=== PATIENT | male | born 1985 | race Caucasian/White ===

== ENCOUNTER 2021-12-26 19:58 | Emergency (ER) | payer SELFPAY ==
[~2021-12-26] VITALS: Ht 188 cm; Wt 104.8 kg
[2021-12-26 20:30] VITALS: BP_SYST 152
[2021-12-26] MEDS ORDERED: LORazepam 1 MG TABLET PO ONE (23:30)
[2021-12-27 00:06] LABS: EOSINOPHILS # (AUTO) 0.1 K/uL (0.0-0.4); RED BLOOD CELL COUNT(AUTO) 5.55 MIL/uL (4.2-6.2)
[2021-12-27 00:16] LABS: POTASSIUM 3.4 mmol/L (3.5-5.1)
[2021-12-27 00:17] LABS: CREATININE 0.96 mg/dL (0.55-1.30)
[2021-12-27 00:21] LABS: BASOPHILS % (AUTO) 0.2 % (0.0-2.0); EOSINOPHILS % (AUTO) 0.5 % (0.0-4.0); HEMATOCRIT 46.8 % (36-54); HEMOGLOBIN 15.5 g/dL (14.0-18.0); LYMPHOCYTES # (AUTO) 2.3 K/uL (1.0-5.5); LYMPHOCYTES % (AUTO) 16.2 % (20.5-51.5); MEAN CORPUSCULAR HEMOGLOBIN 28 pg (27-31); MEAN CORPUSCULAR HGB CONC 33 % (32-36); MEAN CORPUSCULAR VOLUME 84 fL (79.0-98.0); MONOCYTES # (AUTO) 0.7 K/uL (0.0-1.0); MONOCYTES % (AUTO) 5.2 % (1.7-9.3); NEUTROPHILS # (AUTO) 11.1 K/uL (1.8-7.7); NEUTROPHILS % (AUTO) 77.9 % (40.0-70.0); PLATELET COUNT (AUTO) 254 K/uL (130-430); RED CELL DISTRIBUTION WIDTH 15.1 % (9.0-15.0); WHITE BLOOD COUNT (AUTO) 14.2 K/uL (4.8-10.8)
[2021-12-27 00:22] LABS: ALBUMIN 3.5 g/dL (3.4-4.8); TOTAL BILIRUBIN 0.8 mg/dL (0.0-1.0)
[2021-12-27] MEDS ORDERED: methylPREDNISolone SOD SUCC/PF 62.5 MG/ML VIAL IM ONE (01:00)
[2021-12-27] MEDS ORDERED: FAMOTIDINE 20 MG TABLET PO ONE (01:00)
[2021-12-27] MEDS ORDERED: DIPHENHYDRAMINE INJ 50 MG/ML VIAL IM ONE (01:00)
[2021-12-27 02:48] VITALS: BP_SYST 145
== END 2021-12-27 01:40 | disposition home or self-care (01) ==
LOC: SED 19:58
DX: L29.9 Pruritus, unspecified (principal); J45.909 Unspecified asthma, uncomplicated
CPT/HCPCS: 36415; 80053; 85025; 96372; 99284; J1200; J2930